=== PATIENT | female | born 1980 | race Caucasian/White ===

== ENCOUNTER → 2019-03-05 16:21 | Outpatient (CLI) | payer BC, SELFPAY ==
[2018-12-19 07:48] VITALS: BMI 30.8
[2019-03-11 13:22] LABS: HPV Reflexed? NOT INDICATED
== END ==
PROVIDERS: Visit Provider Obstetrics & Gynecology
DX: Z12.4 Encounter for screening for malignant neoplasm of cervix (principal)
CPT/HCPCS: 88175; G0145

== ENCOUNTER → 2019-03-07 14:46 | Outpatient (CLI) | payer BC, SELFPAY ==
[2018-12-19 07:48] VITALS: BMI 30.8
[2019-03-07 15:11] LABS: Hematocrit 40.9 % (37-47); Hemoglobin 13.6 g/dL (12.0-15.0); Mean Corp Hgb Conc 33.3 g/dL (32-36); Mean Corpuscular Hgb 30.6 pg (27.0-32.0); Mean Corpuscular Volume 91.9 fL (81-99); Mean Platelet Vol. 11.2 fl (6.2-12.0); Platelet Count 243 K/mm3 (150-450); RBC Distribution Width CV 13.1 % (11.6-14.6); RBC Distribution Width SD 43.6 fl (35.1-43.9); Red Blood Count 4.45 M/mm3 (4.2-5.4); White Blood Count 8.9 K/mm3 (4.4-11.0)
[2019-03-07 15:44] LABS: ALB/GLOB Ratio 0.9 RATIO (0.9-2.4); AST(SGOT) 11 U/L (15-37); Alanine Aminotransfer ALT/SGPT 17 U/L (13-56); Albumin, Serum 3.6 g/dL (3.2-5.0); Alkaline Phosphatase 68 U/L (45-117); Anion Gap 8 (5-15); BUN 12 mg/dL (7-18); BUN/Creat Ratio 16.7 RATIO (10-20); Chloride 107 mmol/L (98-107); Cholesterol 160 mg/dL (200); Creatinine, Serum 0.72 mg/dL (0.55-1.02); EST Glomerular Filtration Rate 96 mL/min (>60); Est Glom Filt Rate - Afr Amer 117 mL/min (>60); Globulin 3.9 g/dL (2.2-4.2); Glucose 89 mg/dL (74-106); High Density Lipoprotein 58 mg/dL; Potassium 3.8 mmol/L (3.5-5.1); Protein, Total 7.5 g/dL (6.4-8.2); Sodium Level 140 mmol/L (136-145); Thyroid Stim Hormone (TSH) 2.05 uIU/mL (0.358-3.74); Triglycerides 102 mg/dL; Very Low Density Lipoprotein 20 mg/dL (5-40)
== END ==
PROVIDERS: Family Provider Family Medicine; PCP Family Medicine; Referring Provider Obstetrics & Gynecology; Visit Provider Obstetrics & Gynecology
DX: Z13.9 Encounter for screening, unspecified (principal); R53.83 Other fatigue
CPT/HCPCS: 36415; 80053; 80061; 84443; 85027

== ENCOUNTER → 2019-04-30 14:22 | Outpatient (CLI) | payer OTHER, SELFPAY ==
[2019-04-30 16:37] VITALS: BMI 30.8
== END ==
PROVIDERS: Family Provider Family Medicine; PCP Family Medicine; Referring Provider Physician Assistant Surgical; Visit Provider Physician Assistant Surgical
DX: J02.9 Acute pharyngitis, unspecified (principal)
CPT/HCPCS: 87070

== ENCOUNTER → 2019-12-25 13:51 | Outpatient (CLI) | payer OTHER, SELFPAY ==
[2019-05-02 09:02] VITALS: BMI 44.5
--- NOTE | 2019-12-25 13:57 | US_ITS ---
STUDY: ULTRASOUND OF THE FEMALE PELVIS - COMPLETE REASON FOR EXAM: Female, 39 years old. LOWER ABD PAIN X 1 WEEK LMP: December 18, 2019 TECHNIQUE: Transabdominal and Transvaginal TECHNICAL QUALITY: Adequate. COMPARISON: None. FINDINGS: The uterus is anteverted and is in a midline position. The uterus measures 6.6 cm x 5.1 cm x 2.4 cm. Normal uterine cervix. The endometrium measures 5.0 mm in thickness, and is heterogeneous (striated). There is no demonstrated endometrial mass. There is no demonstrated myometrial mass. I.U.D. - The patient does not have an I.U.D. The right ovary is visualized. The right ovary measures 4.5 cm x 3.9 cm x 2.6 cm. There is a 3.3 cm x 3 cm x 1.9 cm hypodense mass in the ovary. This may represent either a hemorrhagic cyst or possible neoplastic process. There is a 3 mm calcification within it. There is normal arterial and normal venous vascularity. The left ovary is visualized. The left ovary measures 2.7 cm x 2.8 cm x 2.8 cm. There is a 1.3 cm x 1.4 cm x 1.1 cm dominant follicle in the left ovary. There is no visualized left adnexal mass or complex lesion. There is normal arterial and normal venous vascularity. There is no fluid in the cul-de-sac. US/Pelvic (Non ) IMPRESSION: 3.3 cm x 3 cm x 1.9 cm hypodense mass in the right ovary. This may represent a hemorrhagic cyst or possible neoplastic process. Follow-up is recommended. Dominant follicle in the left ovary. Electronically Signed: Ari Wei, at 15:23 EDT , Service support ,
--- NOTE | 2019-12-25 13:57 | US_ITS ---
STUDY: ULTRASOUND OF THE FEMALE PELVIS - COMPLETE REASON FOR EXAM: Female, 39 years old. LOWER ABD PAIN X 1 WEEK LMP: December 18, 2019 TECHNIQUE: Transabdominal and Transvaginal TECHNICAL QUALITY: Adequate. COMPARISON: None. FINDINGS: The uterus is anteverted and is in a midline position. The uterus measures 6.6 cm x 5.1 cm x 2.4 cm. Normal uterine cervix. The endometrium measures 5.0 mm in thickness, and is heterogeneous (striated). There is no demonstrated endometrial mass. There is no demonstrated myometrial mass. I.U.D. - The patient does not have an I.U.D. The right ovary is visualized. The right ovary measures 4.5 cm x 3.9 cm x 2.6 cm. There is a 3.3 cm x 3 cm x 1.9 cm hypodense mass in the ovary. This may represent either a hemorrhagic cyst or possible neoplastic process. There is a 3 mm calcification within it. There is normal arterial and normal venous vascularity. The left ovary is visualized. The left ovary measures 2.7 cm x 2.8 cm x 2.8 cm. There is a 1.3 cm x 1.4 cm x 1.1 cm dominant follicle in the left ovary. There is no visualized left adnexal mass or complex lesion. There is normal arterial and normal venous vascularity. There is no fluid in the cul-de-sac. US/Transvaginal Non- IMPRESSION: 3.3 cm x 3 cm x 1.9 cm hypodense mass in the right ovary. This may represent a hemorrhagic cyst or possible neoplastic process. Follow-up is recommended. Dominant follicle in the left ovary. Electronically Signed: Ari Wei, at 15:23 EDT , Service support ,
[2019-12-25 14:05] LABS: Mucous, Urine 0 SEEN /hpf (<or=2+); Red Blood Cells-Urine 0 SEEN /hpf (0-5)
[2019-12-25 14:13] LABS: Color, Urine Yellow (Yellow); Glucose, Dipstick Normal (Normal); Ketone-Dipstick 5 mg/dl (Negative); Leukocyte Esterase-Dipstick 25 /ul (Negative); Nitrite-Dipstick Negative (Negative); Occult Blood-Urine 25 /ul (Negative); Protein-Dipstick 15 mg/dl (Negative); Urine Bilirubin Dipstick Negative (Negative); Urine Clarity Clear (Clear); Urine Urobilinogen Normal (Normal)
[2019-12-25 14:19] LABS: Bacteria 2+ /hpf (None Seen); Squamous Epithelial Cells - UA 5-10 SEEN /hpf (5-10); White Blood Cells 0-5 SEEN /hpf (0-5)
[2020-05-14 11:24] VITALS: BMI 44.5
== END ==
PROVIDERS: Nurse Practitioner Family; PCP Internal Medicine; Referring Provider Obstetrics & Gynecology; Visit Provider Obstetrics & Gynecology
DX: Z00.00 Encounter for general adult medical examination without abnormal findings (principal); R10.30 Lower abdominal pain, unspecified
CPT/HCPCS: 76830; 76856; 81001; 87086; 87088; 93976

== ENCOUNTER → 2020-04-15 08:52 | Outpatient (CLI) | payer OTHER, SELFPAY ==
[2020-04-15 08:27] VITALS: BMI 44.5
[2020-04-15 12:52] LABS: Vitamin B12 627 pg/mL (211-911); Vitamin D,25 Hydroxy 36.1 ng/mL
[2020-04-15 12:57] LABS: Thyroid Stim Hormone (TSH) 2.76 uIU/mL (0.358-3.74)
== END ==
PROVIDERS: PCP Internal Medicine; Referring Provider Nurse Practitioner Family; Visit Provider Nurse Practitioner Family
DX: E56.9 Vitamin deficiency, unspecified (principal); Z13.29 Encounter for screening for other suspected endocrine disorder
CPT/HCPCS: 36415; 82306; 82607; 84443

== ENCOUNTER → 2020-05-14 12:15 | Outpatient (CLI) | payer OTHER, SELFPAY ==
[2020-04-15 08:27] VITALS: BMI 44.5
[2020-05-20 12:30] LABS: HPV APTIMA, High Risk Negative (Negative)
== END ==
PROVIDERS: PCP Internal Medicine; Referring Provider Nurse Practitioner Family; Visit Provider Nurse Practitioner Family
DX: G47.10 Hypersomnia, unspecified (principal); Z12.4 Encounter for screening for malignant neoplasm of cervix
CPT/HCPCS: 87624; 88175; 95806; G0145

== ENCOUNTER 2020-05-18 10:41 | Outpatient (RCR) | payer OTHER, SELFPAY ==
[2020-04-15 08:27] VITALS: BMI 44.5
[2020-05-14 11:24] VITALS: BMI 44.5
== END 2020-05-20 23:59 ==
LOC: EMPH 10:41
PROVIDERS: PCP Internal Medicine; Visit Provider Family Medicine Geriatric Medicine
DX: Z11.59 Encounter for screening for other viral diseases (principal)
CPT/HCPCS: 87635; U0003

== ENCOUNTER → 2020-06-04 08:00 | Outpatient (CLI) | payer OTHER, SELFPAY ==
[2020-05-14 11:24] VITALS: BMI 44.5
== END ==
PROVIDERS: PCP Internal Medicine; Visit Provider Nurse Practitioner Acute Care
DX: Z00.00 Encounter for general adult medical examination without abnormal findings (principal)

== ENCOUNTER → 2020-06-05 15:13 | Outpatient (CLI) | payer OTHER, SELFPAY ==
[2020-05-14 11:24] VITALS: BMI 44.5
[2020-06-05 13:17] VITALS: BMI 32.5
--- NOTE | 2020-06-05 15:14 | US_ITS ---
STUDY: ULTRASOUND OF THE FEMALE PELVIS - COMPLETE REASON FOR EXAM: Female, 40 years old. Follow-up for right ovarian cyst. LMP: 05/24/2020. TECHNIQUE: Transabdominal and Transvaginal TECHNICAL QUALITY: Adequate. COMPARISON: Comparison is made with prior examination dated 12/25/2019 FINDINGS: The uterus is anteverted and is in a midline position. The uterus measures 6.5 cm x 3 cm x 5.1 cm. Normal uterine cervix. The endometrium measures 5.7 mm in thickness, and is heterogeneous (striated). There is no demonstrated endometrial mass. There is no demonstrated myometrial mass. I.U.D. - The patient does not have an I.U.D. The right ovary is visualized. The right ovary measures 4 cm x 2.6 cm x 3.1 cm. There is a 3.2 cm x 2.5 cm x 2.3 cm hypoechoic solid density in the right ovary. This is essentially unchanged. There is no visualized right adnexal mass or complex lesion. There is normal arterial and normal venous vascularity. The left ovary is visualized. The left ovary measures 2.3 cm x 3 sign by 1.1 cm. There is no left ovarian cyst or ovarian mass. There is no visualized left adnexal mass or complex lesion. There is normal arterial and normal venous vascularity. There is no fluid in the cul-de-sac. The pre void volume of the bladder was 396 ml. Polycystic ovary disease: No. US/Transvaginal Non- IMPRESSION: Stable examination. No change in the right ovarian solid nodule. Electronically Signed: Ari Wei, at 12:34 EDT , Service support ,
--- NOTE | 2020-06-05 15:14 | US_ITS ---
STUDY: ULTRASOUND OF THE FEMALE PELVIS - COMPLETE REASON FOR EXAM: Female, 40 years old. Follow-up for right ovarian cyst. LMP: 05/24/2020. TECHNIQUE: Transabdominal and Transvaginal TECHNICAL QUALITY: Adequate. COMPARISON: Comparison is made with prior examination dated 12/25/2019 FINDINGS: The uterus is anteverted and is in a midline position. The uterus measures 6.5 cm x 3 cm x 5.1 cm. Normal uterine cervix. The endometrium measures 5.7 mm in thickness, and is heterogeneous (striated). There is no demonstrated endometrial mass. There is no demonstrated myometrial mass. I.U.D. - The patient does not have an I.U.D. The right ovary is visualized. The right ovary measures 4 cm x 2.6 cm x 3.1 cm. There is a 3.2 cm x 2.5 cm x 2.3 cm hypoechoic solid density in the right ovary. This is essentially unchanged. There is no visualized right adnexal mass or complex lesion. There is normal arterial and normal venous vascularity. The left ovary is visualized. The left ovary measures 2.3 cm x 3 sign by 1.1 cm. There is no left ovarian cyst or ovarian mass. There is no visualized left adnexal mass or complex lesion. There is normal arterial and normal venous vascularity. There is no fluid in the cul-de-sac. The pre void volume of the bladder was 396 ml. Polycystic ovary disease: No. US/Pelvic (Non ) IMPRESSION: Stable examination. No change in the right ovarian solid nodule. Electronically Signed: Ari Wei, at 12:34 EDT , Service support ,
== END ==
PROVIDERS: PCP Internal Medicine; Referring Provider Nurse Practitioner Women's Health; Visit Provider Nurse Practitioner Women's Health
DX: N83.209 Unspecified ovarian cyst, unspecified side (principal)
CPT/HCPCS: 76830; 76856; 93976

== ENCOUNTER 2020-06-18 08:26 | Outpatient (RCR) | payer OTHER, SELFPAY ==
[2020-05-14 11:24] VITALS: BMI 44.5
[2020-06-05 13:17] VITALS: BMI 32.5
== END 2020-06-20 23:59 ==
LOC: EMPH 08:26
PROVIDERS: PCP Internal Medicine; Visit Provider Family Medicine Geriatric Medicine
DX: Z03.818 Encounter for observation for suspected exposure to other biological agents ruled out (principal)
CPT/HCPCS: 87426

== ENCOUNTER 2020-07-15 10:47 | Outpatient (RCR) | payer OTHER, SELFPAY ==
[2020-06-05 13:17] VITALS: BMI 32.5
== END 2020-07-20 23:59 ==
LOC: EMPH 10:47
PROVIDERS: PCP Internal Medicine; Visit Provider Family Medicine Geriatric Medicine
DX: Z03.818 Encounter for observation for suspected exposure to other biological agents ruled out (principal)
CPT/HCPCS: 87426

== ENCOUNTER 2020-08-19 14:37 | Outpatient (RCR) | payer OTHER, SELFPAY ==
[2020-06-05 13:17] VITALS: BMI 32.5
== END 2020-08-20 23:59 ==
LOC: EMPH 14:37
PROVIDERS: PCP Internal Medicine; Referring Provider Family Medicine Geriatric Medicine; Visit Provider Family Medicine Geriatric Medicine
DX: Z03.818 Encounter for observation for suspected exposure to other biological agents ruled out (principal)
CPT/HCPCS: 87426

== ENCOUNTER 2020-09-18 08:40 | Outpatient (RCR) | payer OTHER, SELFPAY ==
[2020-08-06 08:12] VITALS: BMI 31.7
== END 2020-09-20 23:59 ==
LOC: EMPH 08:40
PROVIDERS: PCP Internal Medicine; Referring Provider Family Medicine Geriatric Medicine; Visit Provider Family Medicine Geriatric Medicine
DX: Z03.818 Encounter for observation for suspected exposure to other biological agents ruled out (principal)
CPT/HCPCS: 87426

== ENCOUNTER 2020-10-16 09:54 | Outpatient (RCR) | payer OTHER, SELFPAY ==
[2020-08-06 08:12] VITALS: BMI 31.7
== END 2020-10-18 23:59 ==
LOC: EMPH 09:54
PROVIDERS: PCP Internal Medicine; Referring Provider Family Medicine Geriatric Medicine; Visit Provider Family Medicine Geriatric Medicine
DX: Z03.818 Encounter for observation for suspected exposure to other biological agents ruled out (principal)
CPT/HCPCS: 87426

== ENCOUNTER 2020-10-21 13:09 | Outpatient (RCR) | payer OTHER, SELFPAY ==
[2020-10-19 08:39] VITALS: BMI 29.9
== END 2020-11-18 23:59 ==
LOC: EMPH 13:09
PROVIDERS: PCP Internal Medicine; Referring Provider Family Medicine Geriatric Medicine; Visit Provider Family Medicine Geriatric Medicine
DX: Z03.818 Encounter for observation for suspected exposure to other biological agents ruled out (principal)
CPT/HCPCS: 87426

== ENCOUNTER → 2020-11-05 13:00 | Outpatient (CLI) | payer SELFPAY ==
[2020-10-19 08:39] VITALS: BMI 29.9
== END ==
PROVIDERS: PCP Internal Medicine; Referring Provider Nurse Practitioner Acute Care; Visit Provider Nurse Practitioner Acute Care
DX: Z00.00 Encounter for general adult medical examination without abnormal findings (principal)

== ENCOUNTER 2020-12-05 23:12 | Outpatient (RCR) | payer SELFPAY | END 2020-12-18 23:59 | LOC: EMPH 23:12 | PROVIDERS: PCP Internal Medicine; Referring Provider Family Medicine Geriatric Medicine; Visit Provider Family Medicine Geriatric Medicine | DX: Z03.818 Encounter for observation for suspected exposure to other biological agents ruled out (principal) | CPT/HCPCS: 87426 ==

== ENCOUNTER 2021-02-11 11:15 | Outpatient (RCR) | payer OTHER, SELFPAY ==
[2021-02-02 15:00] VITALS: BMI 29.9
== END 2021-02-17 23:59 ==
LOC: EMPH 11:15
PROVIDERS: PCP Internal Medicine; Referring Provider Family Medicine Geriatric Medicine; Visit Provider Family Medicine Geriatric Medicine
DX: Z03.818 Encounter for observation for suspected exposure to other biological agents ruled out (principal)
CPT/HCPCS: 87426

== ENCOUNTER 2021-04-27 09:47 | Outpatient (RCR) | payer OTHER, SELFPAY ==
[2021-02-02 15:00] VITALS: BMI 29.9
== END 2021-05-20 23:59 ==
LOC: EMPH 09:47
PROVIDERS: PCP Internal Medicine; Referring Provider Family Medicine Geriatric Medicine; Visit Provider Family Medicine Geriatric Medicine
DX: Z03.818 Encounter for observation for suspected exposure to other biological agents ruled out (principal)
CPT/HCPCS: 87426

== ENCOUNTER 2021-08-12 14:13 | Outpatient (RCR) | payer OTHER, SELFPAY ==
[2021-05-21 00:06] VITALS: BMI 29.9
== END 2021-08-20 23:59 ==
LOC: EMPH 14:13
PROVIDERS: PCP Internal Medicine; Referring Provider Family Medicine Geriatric Medicine; Visit Provider Family Medicine Geriatric Medicine
DX: Z03.818 Encounter for observation for suspected exposure to other biological agents ruled out (principal)
CPT/HCPCS: 87426